=== PATIENT | male | born 1995 | race Caucasian/White ===

== ENCOUNTER 2021-08-14 12:46 | Day surgery (SDC) | payer BC ==
[2021-08-14] MEDS ORDERED: cefOXitin 2 GM VIAL ONE (16:44)
[2021-08-14] MEDS ORDERED: Sodium Chloride 0.9% 100 ML ONE (16:44)
[2021-08-14] MEDS ORDERED: Midazolam HCl 2 mg/2 ml Vial ONE (16:45)
[2021-08-14] MEDS ORDERED: fentaNYL Citrate/PF 100 MCG/2 ML SYRINGE ONE ×2 (16:46→18:31)
[2021-08-14] MEDS ORDERED: Bupivacaine 0.25% HCL 30 ML VIAL ONE (16:48)
[2021-08-14] MEDS ORDERED: Lidocaine 1% w/Epinephrine 1:100K 20 ML VIAL ONE (16:48)
[2021-08-14] MEDS ORDERED: Succinylcholine 200 MG/10 ml SYRINGE FS ONE (17:07)
[2021-08-14] MEDS ORDERED: Dexamethasone 20 MG/5 ML VIAL ONE (17:07)
[2021-08-14] MEDS ORDERED: Rocuronium Bromide 10 MG/ML (10ML VIAL) ONE (17:07)
[2021-08-14] MEDS ORDERED: Lidocaine 1% PF 5 ML VIAL ONE (17:07)
[2021-08-14] MEDS ORDERED: PROPOFOL 200 MG/20 ML VIAL ONE (17:07)
[2021-08-14] MEDS ORDERED: Glycopyrrolate 0.2 MG/ML 5 ML SYRINGE ONE (17:07)
[2021-08-14] MEDS ORDERED: Ondansetron PF 4 MG/2 ML Vial ONE ×2 (17:07→18:35)
[2021-08-14] MEDS ORDERED: HYDROcodone/Acetaminophen 5/325 mg Tablet ONE (18:59)
[2021-08-14] MEDS ORDERED: Fentanyl 100 MCG/2 ML VIAL ONE (19:02)
== END 2021-08-14 20:04 | disposition home or self-care (01) ==
LOC: SDC 12:46
PROVIDERS: ATTEND Surgery
PROC: 0DTJ4ZZ Resection of Appendix, Percutaneous Endoscopic Approach (ICD-10-PCS; principal; 2021-08-14)
DX: K35.80 Unspecified acute appendicitis (principal)
CPT/HCPCS: 88304; 93005; 93010; A4649; C1776; J0694; J1100; J2250; J2405; J2704; J3010; J3490; S0020